=== PATIENT | female | born 1990 | race Caucasian/White ===

== ENCOUNTER 2019-06-13 15:17 | Emergency (ER) | payer SELFPAY ==
[2019-06-13 15:25] VITALS: BP 135/97; PULSE 98; RESP 18; TEMP 36.7; O2SAT 94
--- NOTE | 2019-06-13 16:21 | DI.RAD.S_ITS ---
PROCEDURE: XR CHEST 2V INDICATIONS: Wheezing, short of breath, fevers TECHNIQUE: 2 views of the chest were acquired. COMPARISON: [facility], , CHEST 2 VIEW, 07/29/2016, 20:00. FINDINGS: Surgical changes and devices: None. Lungs and pleura: Lungs are clear. No pleural effusions or pneumothorax. Mediastinum: Mediastinal contours are normal. Heart size is normal. Bones and chest wall: No suspicious bony abnormalities. Soft tissues appear unremarkable. IMPRESSION: Normal chest, without focal infiltrates. Dictated by: Rishi Mei M.D. on 06/13/2019 at 15:40 Approved by: Rishi Mei M.D. on 06/13/2019 at 15:41
--- NOTE | 2019-06-13 16:23 | ED.SOB ---
HPI - SOB/Dyspnea <AMINATA Chavez - Last Filed: 06/13/19 20:43> General Chief Complaint: Shortness of Breath/Dyspnea Stated Complaint: states allergy issues today Time Seen by Provider: 06/13/19 15:51 Source: patient Mode of arrival: Ambulatory Limitations: no limitations History of Present Illness HPI Narrative: 29-year-old female with history of allergy induced asthma, presents emergency department today complaining of shortness of breath with exertion and productive cough with moderate amounts of white mucus for the past week. She states she has been taking Claritin and Zyrtec but this has not relieved her symptoms. She denies taking any inhalers. She states she has been around sick contact and has had postnasal drip which she feels starting to resolve. She also reports she has had a sore throat for the past 3 days that is increased in severity. She feels like she has low-grade fevers such as 99.5F. She denies chest pain, ear pain, headaches, nausea, vomiting, diarrhea, or other concerns. Related Data Previous Rx's Medication Instructions Recorded prednisone 50 mg PO DAILY 5 Days tab 06/13/19 Allergies Allergy/AdvReac Type Severity Reaction Status Date / Time doxycycline [DOXYCYCLINE] Allergy Unknown Verified 06/13/19 15:29 Sulfa (Sulfonamide Allergy Unknown Verified 06/13/19 15:29 Antibiotics) [SULFA (SULFONAMIDE ANTIBIOTICS)] Review of Systems <AMINATA Chavez - Last Filed: 06/13/19 20:43> Review of Systems Narrative: REVIEW OF SYSTEMS: GENERAL: Denies fevers. HENT: No head trauma or hearing loss. EYES: No loss of vision, double vision, eye pain, or discharge. Patient complains of occasional per this, see HPI. CARDIOVASCULAR: No chest pain or syncope. RESPIRATORY: Patient complains of cough and shortness of breath, see HPI. GASTROINTESTINAL: No nausea, vomiting, diarrhea, or constipation. MUSCULOSKELETAL: No weakness or injury. INTEGUMENTARY: No rash, lesions, or pruritus. NEURO: No memory loss, or confusion. Patient History <AMINATA Chavez - Last Filed: 06/13/19 20:43> Medical/Surgical History Medical History Environmental allergies (Acute) Social History Smoking Status: Current every day smoker Family/Social History Social History Smoking Status: Current every day smoker tobacco type: cigarettes alcohol intake frequency: 0-2 drinks per day Substance Use Type: marijuana Exam <AMINATA Chavez - Last Filed: 06/13/19 20:43> Narrative Exam Narrative: PHYSICAL EXAMINATION: GENERAL: Well groomed, alert, and cooperative. Answers questions promptly and appropriately. Vital signs noted. HENT: Normocephalic, atraumatic. Ear canals patent. TMs intact without mucus or erythema. Oropharynx with significant erythema, no exudate.. Tonsils are not present. EYES: Conjunctiva pink, sclera white, no periorbital swelling. No discharge. CHEST: Normal to inspection and without deformities. CARDIOVASCULAR: S1 and S2 sounds normal. Regular rate and rhythm, no murmurs, clicks, or bruits. RESPIRATORY: Normal respiratory rate, trachea midline, airway patent. No stridor, nasal flaring or accessory muscle use. Able to speak in full sentences. Diffuse expiratory wheezes noted throughout all lung noguera, this resolved significantly after albuterol administration. No cough is noted during exam. MUSCULOSKELETAL: Normal gait and coordination. Equal tone and mass bilaterally. EXTREMITIES: Moves all extremities. SKIN: Warm, dry, soft, appropriate color for ethnicity. No lesions, rashes, or wounds. NEURO: Alert and Oriented X 3. Good coordination. No ataxia or cognitive issues. PSYCH: Appropriate affect and mood. Initial Vital Signs Initial Vital Signs: Vital Signs Temperature 98.1 F 06/13/19 15:25 Pulse Rate 98 H 06/13/19 15:25 Respiratory Rate 18 06/13/19 15:25 Blood Pressure 135/97 H 06/13/19 15:25 Pulse Oximetry 94 06/13/19 15:25 <Ray Mohr DO - Last Filed: 06/14/19 08:22> Initial Vital Signs Initial Vital Signs: Vital Signs Temperature 98.1 F 06/13/19 15:25 Pulse Rate 98 H 06/13/19 15:25 Respiratory Rate 18 06/13/19 15:25 Blood Pressure 135/97 H 06/13/19 15:25 Pulse Oximetry 94 06/13/19 15:25 Course <AMINATA Chavez - Last Filed: 06/13/19 20:43> Course Course Narrative: After administration of DuoNeb, wheezes decreased. Patient states she is feeling much better. Respiratory therapy was called to give her an inhaler instruction on using spacer. Prednisone was given in the emergency department, she was also given a prescription for prednisone for the next few days. Orders Ordered: Discontinued Medications Albuterol (Ventolin Hfa Prepack) 1 box [facility] ONE Stop: 06/13/19 17:34 Last Admin: 06/13/19 17:36 Dose: 1 box Documented by: MAE Albuterol/Ipratropium (Duoneb) 3 ml INH NOW ONE Stop: 06/13/19 16:22 Last Admin: 06/13/19 17:26 Dose: 3 ml Documented by: MAE Prednisone (Deltasone) 40 mg PO NOW ONE Stop: 06/13/19 16:22 Last Admin: 06/13/19 16:31 Dose: 40 mg Documented by: CPRUITT Vital Signs Vital signs: Vital Signs - 8 hr 06/13/19 15:25 06/13/19 16:25 06/13/19 17:27 Temperature 98.1 F Pulse Rate 98 H 93 H 86 Respiratory Rate 18 20 Blood Pressure 135/97 H Blood Pressure [Left Arm] 116/69 Pulse Oximetry 94 100 98 06/13/19 17:36 Temperature Pulse Rate Respiratory Rate Blood Pressure Blood Pressure [Left Arm] Pulse Oximetry 98 <Ray Mohr DO - Last Filed: 06/14/19 08:22> Orders Ordered: Discontinued Medications Albuterol (Ventolin Hfa Prepack) 1 box [facility] ONE Stop: 06/13/19 17:34 Last Admin: 06/13/19 17:36 Dose: 1 box Documented by: MAE Albuterol/Ipratropium (Duoneb) 3 ml INH NOW ONE Stop: 06/13/19 16:22 Last Admin: 06/13/19 17:26 Dose: 3 ml Documented by: MAE Prednisone (Deltasone) 40 mg PO NOW ONE Stop: 06/13/19 16:22 Last Admin: 06/13/19 16:31 Dose: 40 mg Documented by: CPRUITT Vital Signs Vital signs: Vital Signs - 8 hr 06/13/19 15:25 06/13/19 16:25 06/13/19 17:27 Temperature 98.1 F Pulse Rate 98 H 93 H 86 Respiratory Rate 18 20 Blood Pressure 135/97 H Blood Pressure [Left Arm] 116/69 Pulse Oximetry 94 100 98 06/13/19 17:36 Temperature Pulse Rate Respiratory Rate Blood Pressure Blood Pressure [Left Arm] Pulse Oximetry 98 MDM - SOB/Dyspnea <AMINATA Chavez - Last Filed: 06/13/19 20:43> Medical Records Attestation: I reviewed the patient's medical records. Lab Data Attestation: I reviewed the patient's lab results. Labs: Point of Care Testing Rapid Strep A Negative Imaging Data Chest XR: Radiologist's impression: [address] [address] XRay Report Signed Patient: Radha Welsh#: [id number] : 1990Acct:[id number] Age/Sex: 29 / FDate of Service: 06/13/19 Loc: ED Accession Number: [id number] Procedure: XR chest 2V Ordering Provider: Lucía Lindsay PROCEDURE: XR CHEST 2V INDICATIONS: Wheezing, short of breath, fevers TECHNIQUE: 2 views of the chest were acquired. COMPARISON: [facility], CHEST 2 VIEW, 07/29/2016, 20:00. FINDINGS: Surgical changes and devices: None. Lungs and pleura: Lungs are clear. No pleural effusions or pneumothorax. Mediastinum: Mediastinal contours are normal. Heart size is normal. Bones and chest wall: No suspicious bony abnormalities. Soft tissues appear unremarkable. IMPRESSION: Normal chest, without focal infiltrates. Dictated by: Rishi Mei M.D. on 06/13/2019 at 15:40 Approved by: Rishi Mei M.D. on 06/13/2019 at 15:41 [facility] Narrative Medical decision making narrative: History and exam are consistent with asthma exacerbation (wheezing present, symptoms worried reduced with albuterol and prednisone) possibly due to viral illness, smoking, and allergies. Less likely bronchitis due to lack of coarse breath sounds, less likely pneumonia due to negative chest x-ray and lack of systemic symptoms such as fever. Strict return precautions given and follow-up instructions discussed. <Ray Mohr DO - Last Filed: 06/14/19 08:22> Lab Data Labs: Point of Care Testing Rapid Strep A Negative Discharge Plan Departure Patient Disposition: Home Clinical Impression: Acute asthma exacerbation Qualifiers: Asthma severity: moderate Asthma persistence: persistent Qualified Code(s): J45.41 - Moderate persistent asthma with (acute) exacerbation Discharge Date/Time: 06/13/19 18:01 Instructions: DI for Asthma -- Adult, Reasons to Quit Smoking Prescriptions: New prednisone 50 mg tablet 50 mg PO DAILY 5 Days RF: 0 <Ray Mohr, DO - Last Filed: 06/14/19 08:22> Sign Out Provider Sign Out Attestation: I was available for consultation during this patient's emergency department visit. This chart is signed by myself for administrative purposes only. I did not have direct contact with this patient during this visit. They were seen independently by the APC.
[2019-06-13 16:25] VITALS: BP 116/69; PULSE 93; O2SAT 100
[2019-06-13] MEDS: predniSONE 20 MG TABLET 40 MG PO (16:31)
[2019-06-13] MEDS: ALBUTEROL/IPRATROPIUM 3 ML AMPUL INH (17:26)
[2019-06-13 17:27] VITALS: PULSE 86; RESP 20; O2SAT 98
[2019-06-13 17:36] VITALS: O2SAT 98
[2019-06-13] MEDS: ALBUTEROL HFA PREPACK 1 BOX MISC (17:36)
== END 2019-06-13 18:01 | disposition home or self-care (01) ==
PROVIDERS: Emergency Provider Nurse Practitioner
DX: J45.41 Moderate persistent asthma with (acute) exacerbation (principal)
CPT/HCPCS: 71046; 87880; 94640; 99282; 99283